=== PATIENT | female | born 1990 | race Caucasian/White ===

== ENCOUNTER 2021-02-15 10:49 | Emergency (ER) | payer SELFPAY ==
--- NOTE | 2021-02-15 12:49 | US ---
First trimester obstetrical ultrasound: Multiple real-time images were obtained transabdominally. Comparison: No prior study for current is available. Dates: Current ultrasound: FREDY 08/21/21, gestational age 13 weeks 2 days Single intrauterine gestation is seen. Small subchorionic hemorrhage is noted. Embryo is seen. Placenta is developing anteriorly. Maternal ovaries are within normal limits. Measurements: Tobin-rump length: 7.31 cm - 13 weeks 2 days Heart rate: 158 bpm Impression: 1. Single intrauterine gestation. Dates as noted above. 2. Small subchorionic hemorrhage is noted. No other acute abnormality is appreciated. Diagnostic code #2
--- NOTE | 2021-02-15 13:28 | EDM.PDOC ---
ED HPI GENERAL MEDICAL PROBLEM - General Chief Complaint: FASHION MODEL Problem Stated Complaint: 3 MONTHS PREG AND BLEEDING Time Seen by Provider: 02/15/21 11:28 Source of Information: Reports: Patient, RN Notes Reviewed - History of Present Illness INITIAL COMMENTS - FREE TEXT/NARRATIVE: 30 yr old female with small amt of vagingal bleeding/spotting this AM, mainly with wiping post voiding. She believes she is about 12 wks with last LMP about 12 weeks ago. She has just moved here from [place] [facility] [place], has not yet seen or established an OB provider. She is . No abd or back discomfort. No chest pain or difficulty breathing. - Related Data Allergies Allergy/AdvReac Type Severity Reaction Status Date / Time No Known Allergies Allergy Verified 02/15/21 11:14 Home Meds: Home Meds . [No Known Home Meds] 02/15/21 [History] Past Medical History HEENT History: Reports: None Cardiovascular History: Reports: None Respiratory History: Reports: Bronchitis, Recurrent Gastrointestinal History: Reports: Other (See Below) Other Gastrointestinal History: benign tumor Genitourinary History: Reports: None FASHION MODEL History: Reports: , Spontaneous Musculoskeletal History: Reports: None Neurological History: Reports: Migraines Psychiatric History: Reports: None Endocrine/Metabolic History: Reports: None Hematologic History: Reports: None Immunologic History: Reports: None Oncologic (Cancer) History: Reports: None Dermatologic History: Reports: None - Infectious Disease History Infectious Disease History: Reports: Chicken Pox - Past Surgical History HEENT Surgical History: Reports: Adenoidectomy, Tonsillectomy GI Surgical History: Reports: Hernia Repair/Other, Other (See Below) Other GI Surgeries/Procedures: tumor removal Social & Family History - Family History Family Medical History: No Pertinent Family History - Tobacco Use Tobacco Use Status *Q: Former Tobacco User Used Tobacco, but Quit: Yes Month/Year Tobacco Last Used: 11/18/2020 - Caffeine Use Caffeine Use: Reports: Coffee - Recreational Drug Use Recreational Drug Use: No ED ROS GENERAL - Review of Systems Review Of Systems: See Below Constitutional: Denies: Fever, Chills, Diaphoresis HEENT: Reports: No Symptoms Respiratory: Denies: Shortness of Breath, Pleuritic Chest Pain Cardiovascular: Denies: Chest Pain GI/Abdominal: Denies: Abdominal Pain, Nausea, Vomiting Musculoskeletal: Denies: Back Pain Skin: Reports: No Symptoms Neurological: Denies: Dizziness ED EXAM - Physical Exam Exam: See Below General Appearance: Alert, No Apparent Distress Head: Atraumatic Neck: Supple Respiratory/Chest: No Respiratory Distress, Lungs Clear, Normal Breath Sounds Cardiovascular: Regular Rate, Rhythm GI/Abdominal Exam: Soft, Non-Tender. No: Guarding Extremities: No: Pedal Edema, Leg Pain Neurological: Alert, Oriented, No Motor/Sensory Deficits Skin Exam: Warm, Dry, Normal Color Course - Vital Signs Last Recorded V/S: Last Vital Signs Temp 98.1 F 02/15/21 11:18 Pulse 69 02/15/21 11:18 Resp 18 02/15/21 11:18 BP 119/59 L 02/15/21 11:18 Pulse Ox 99 02/15/21 11:18 - Orders/Labs/Meds Labs: Laboratory Tests 02/15/21 02/15/21 Range/Units 11:53 11:53 HCG, Quant 88444.0 mIU/mL Blood Type O POSITIVE Gel Antibody Screen Negative - Re-Assessments/Exams Free Text/Narrative Re-Assessment/Exam: 02/16/21 11:32 pelvic US showeda single intrauterine gestation compatable with 13 wks, 2 days, heart rate 158. Small subchorionic hemorrhage, see Radiologist report for details. Discharge instr. as documented. Departure - Departure Time of Disposition: 13:23 Disposition: Home, Self-Care 01 Condition: Fair Clinical Impression: Vaginal bleeding before 22 weeks gestation, Second trimester - Discharge Information Instructions: Vaginal Bleeding During , Second Trimester, [id number] Referrals: PCP,None [Primary Care Provider] - Forms: ED Department Discharge Additional Instructions: Rest, drink plenty of water to maintain hydration. Pelvic rest, no sexual activity for the next 10 days. Call [phone] for appointment to see one of our [employer] providers. Return to ED as needed if symptoms worsening in a serious way, especially if soaking more than a pad per hr for more than 1 or 2 hours. Sepsis Event Note (ED) - Evaluation Sepsis Screening Result: No Definite Risk
== END 2021-02-15 13:40 | disposition home or self-care (01) ==
LOC: JD.ED 10:49
DX: O20.9 Hemorrhage in early pregnancy, unspecified (principal); Z3A.12 12 weeks gestation of pregnancy; Z87.891 Personal history of nicotine dependence
CPT/HCPCS: 36415; 76801; 76801-26; 84702; 86850; 86900; 86901; 99284-25